=== PATIENT | female | born 1980 | race African-American/Black ===

== ENCOUNTER 2017-06-23 22:53 | Emergency (ER) | payer SELFPAY ==
[~2017-06-23] VITALS: Ht 160 cm; Wt 65.0 kg
[2017-06-23] MEDS ORDERED: MAGNESIUM 2 G PREMIX 50 ML IV ONE (23:30)
[2017-06-23] MEDS ORDERED: METHYLPREDNISOLONE SOD SUCC 125 MG/2 ML VIAL IV STA (23:30)
[2017-06-23] MEDS ORDERED: SODIUM CHLORIDE 0.9% 500 ML IV ONE (23:30)
[2017-06-23] MEDS ORDERED: IPRATROPIUM/ALBUTEROL 0.5-3(2.5)MG/3ML NEB HHN ONE (23:30)
[2017-06-24 00:12] LABS: BASOPHILS % 1.2 % (0.0-2.0); EOSINOPHILS % 1.8 % (0.0-5.0); MEAN CORPUSCULAR HEMOGLOBIN 22.1 pg (28.0-32.0); MEAN CORPUSCULAR VOLUME 70.1 fL (81.0-99.0); MEAN PLATELET VOLUME 7.8 fl (7.4-10.4); MONOCYTES % 3.2 % (2.0-8.0); NEUTROPHILS % 53.8 % (40.0-76.0); PLATELET 342 x1000/uL (130-400); RED BLOOD CELL COUNT 5.43 mill/uL (4.2-5.4); RED CELL DISTRIBUTION WIDTH 15.5 % (11.6-14.6)
[2017-06-24 00:17] LABS: PARTIAL THROMBOPLASTIN TIME 27.1 sec (23.4-31.0); PROTHROMBIN TIME 10.5 sec (9.4-11.6)
[2017-06-24 00:25] LABS: CARBON DIOXIDE 23 mEq/L (21-32); CHLORIDE 110 mEq/L (98-107); TROPONIN I < 0.02 ng/mL (0.00-0.04)
[2017-06-24 00:35] LABS: HCG SCREEN NEGATIVE
[2017-06-24] MEDS ORDERED: HYDROCODONE/ACETAMINOPHEN 5/325MG TABLET PO ONE (00:45)
[2017-06-24] MEDS ORDERED: FAMOTIDINE 20MG/2ML VIAL IV ONE (01:45)
[2017-06-24] MEDS ORDERED: KETOROLAC 30MG/ML VIAL IV ONE (01:45)
[2017-06-24] MEDS ORDERED: IPRATROPIUM/ALBUTEROL 0.5-3(2.5)MG/3ML NEB HHN ONE (02:30)
[2017-06-24 03:20] VITALS: BP 115/75
== END 2017-06-24 03:20 ==
LOC: ER 23:05 → CANBEDREQ 06-24 06:32
DX: J45.909 Unspecified asthma, uncomplicated (principal); Z98.890 Other specified postprocedural states
CPT/HCPCS: 36415; 71010; 80053; 83605; 83690; 83880; 84443; 84484; 84703; 85025; 85610; 85730; 87040; 93005; 94640; 96365; 96366; 96375; 99285; J1885; J2930; J3475; J3490; J7030; J7040; J7620; Z7610